=== PATIENT | male | born 1980 | race Caucasian/White ===

== ENCOUNTER 2024-11-21 14:43 | Emergency (ER) | payer OTHER, SELFPAY ==
[2024-11-21 14:57] VITALS: BP 140/86; PULSE 60; TEMP 36.7; O2SAT 99
--- OUTSIDE RECORDS SUMMARY | 2024-11-21 15:10 | XMS_ITS | Encounter Summary ---
Author Organization [facility] Address [address] [place] [address] Care Team Providers Care Manager Managed Care Name Role Phone Diana Cedeno MALINDA Primary Care Provider [phone] Reason for Visit * Reason Onset Date Comments Appointment 03/16/2024 Encounter Details Date Type Department Care Team (Late st Contact Info) Description 03/16/2024 Telephone Central Scheduling [address] [place] [address] Tavia Young Appointment Social History Tobacco Use Types Packs/Day Years Used Date Smoking Tobacco: Some Days Cigarettes 0.3 25 Started: 04/13/1996; Last attempted to quit: 04/13/2021 Smokeless Tobacco: Never Alcohol Use Standard Drinks/Week Comments Not Currently 0 (1 standard drink = 0.6 oz pur e alcohol) Sex and Gender Information Value Date Recorded Sex Assigned at Not on file Legal Sex Male 2:49 PM EDT Gender Identity Male Sexual Orientation Straight 02/26/2024 1: 24 PM EST documented as of this encounter Functional Status * Are you deaf or do you have serious difficulty hearing? Answer Date of Assessment Author No 08/13/2017 12:47 PM EDT Love Jett * Are you blind or do you have serious difficulty seeing, even when wearing glasses? Answer Date of Assessment Author No 08/13/2017 12:47 PM EDT Love Jett * Do you have serious difficulty walking or climbing stairs (5 years or older)? Answer Date of Assessment Author Yes 08/13/2017 12:47 PM EDT Love Jett * Do you have difficulty dressing or bathing (5 yrs or older)? Answer Date of Assessment Author No 08/13/2017 12:47 PM Love Moreau * Because of a physical, mental, or emotional condition, do you have difficulty doing errands alone such as visiting a doctor's office or shopping (5 yrs or older)? Answer Date of Assessment Author No 08/13/2017 12:47 PM Love Moreau documented as of this encounter Mental Status * Because of a physical, mental, or emotional condition, do you have serious difficulty concentrating, remembering, or making decisions (5 yrs or older)? Answer Entry Date Author No 08/13/2017 12:47 PM Love Moreau documented in this encounter Miscellaneous Notes * Telephone Encounter - Tavia Young - 03/16/2024 11:31 AM EST Pt calling in stating he received the letter to schedule his pump trial. Pls contact. Thank you documented in this encounter Plan of Treatment Not on file documented as of this encounter Visit Diagnoses Not on filedocumented in this encounter Care Teams Manager Managed Care Relationship Specialty Start Date End Date Diana Cedeno CNP [address] [place] [address] PCP - General Certified Nurse Practitioner 08/13/17 documented as of this encounter
--- OUTSIDE RECORDS SUMMARY | 2024-11-21 15:10 | XMS_ITS | Encounter Summary ---
Author Organization [facility] Address [address] [place] [address] Care Team Providers Care Lab Support Tech Name Role Phone Diana Cedeno MALINDA Primary Care Provider [phone] Reason for Visit * Reason Onset Date Comments Procedure 05/03/2024 Encounter Details Date Type Department Care Team (Late st Contact Info) Description 05/03/2024 Telephone Central Scheduling [address] [place] [address] Selin Dillard Procedure Social History Tobacco Use Types Packs/Day Years [...] of Assessment Author No 08/13/2017 12:47 PM EDLove Ruiz * Because of a physical, mental, or [...] encounter Miscellaneous Notes * Telephone Encounter - Selin Gilma - 05/03/2024 8:57 AM EST Patient states that he received a phone call advising that his Morphine Trial has been denied by his insurance. He is requesting to be advised on the next steps of treatment. Patient is requesting medication for pain be called in until he is able to have the morphine pump trial. Patient states procedure was scheduled for 05/05/2024 and message should be sent as urgent. documented in this encounter Plan of Treatment Not on file documented as of this encounter Visit Diagnoses Not on filedocumented in this encounter Care Teams Lab Support Tech Relationship Specialty Start Date End Date Diana Cedeno CNP [address] [place] [address] PCP - General Certified Nurse Practitioner 08/13/17 documented as of this encounter
--- OUTSIDE RECORDS SUMMARY | 2024-11-21 15:10 | XMS_ITS | Encounter Summary ---
Author Organization [facility] Address [address], [address] [place] [address] Care Team Providers Care Spool Tender Name Role Phone Diana Cedeno APRN MALINDA Primary Care Provider Reason for Referral * Imaging (Routine) - Closed Specialty Diagnoses / Procedures Referred By Contac t Referred To Contact Radiology Diagnoses Other intervertebral disc displacement, lumbar region Procedures MRI CERVICAL SPINE WO CONTRAST Diana Cedeno APRN - CNP [address] [place] [address] Phone: tel: fax: Referral ID Status Reason Start Date Expiration Date Visits Re quested Visits Authorized [id number] Closed 06/19/2022 06/19/2023 1 1 * Imaging (Routine) - Closed Specialty Diagnoses / Procedures Referred By Contac t Referred To Contact Radiology Diagnoses Other intervertebral disc displacement, lumbar region Procedures MRI LUMBAR SPINE WO CONTRAST Diana Cedeno APRN - CNP [address] [place] [address] Phone: tel: fax: Referral ID Status Reason Start Date Expiration Date Visits Re quested Visits Authorized [id number] Closed 06/19/2022 06/19/2023 1 1 Encounter Details Date Type Department Care Team (Latest Contact Info) Description 06/19/2022 Transcribe Orders [facility] [address] [place] [address] Diana Cedeno, CUSTOMER ACQUISITION MANAGER - PLASTIC PROCESS TECHNICIAN [address] [place] [id number] Other intervertebral disc displacement, lumbar region (Primary Dx) Social History Tobacco Use Types Packs/Day Years Used Date Smoking Tobacco: Every Day Cigarettes 0.5 17 Smokeless Tobacco: Never Alcohol Use Standard Drinks/Week Comments No 0 (1 standard drink = 0.6 oz pur e alcohol) Sex and Gender Information Value Date Recorded Sex Assigned at Not on file Legal Sex Male 4:20 PM EST Gender Identity Not on file Sexual Orientation Not on file documented as of this encounter Plan of Treatment Upcoming Encounters Date Type Department Care Team (Late st Contact Info) Description 01/03/2025 8:00 AM EDT Office Visit [facility] CARD[facility]OLOGY Part of [address] [address] Cecilia Cardenas, CUSTOMER ACQUISITION MANAGER - PLASTIC PROCESS TECHNICIAN [address] [place] [phone] follow up documented as of this encounter Goals Goal Patient Goal Type Associated Problems Recent Progress Patient-Stated? Author Quit smoking. Lifestyle Not on track(03/04/20 13 8:17 AM EST) No Martien, Meagan Quit smoking. Lifestyle Not on track(06/28/19 14 2:23 PM EDT) No Martien, Meagan Quit smoking Lifestyle Not on track(08/17/19 14 8:30 AM EDT) No Martien, Meagan Quit smoking. Lifestyle Not on track(12/29/19 14 10:10 AM EDT) No Martien, Meagan Quit smoking. Lifestyle Not on track(04/19/19 15 8:54 AM EST) No Martien, Meagan Quit smoking Lifestyle No Martien, Meagan documented as of this encounter Results * MRI LUMBAR SPINE WO CONTRAST (07/07/2022 2:45 PM EDT) Anatomical Region Laterality Modality T-spine, L-spine, Pelvis Magneti c Resonance 07/07/2022 2:46 PM EDT Impressions 07/07/2022 3:19 PM EDT Multilevel degenerative change most pronounced in the lower lumbar spine with mild to moderate right foraminal narrowing at L4-5 as well as mild right and severe left foraminal narrowing at L5-S1. Narrative 07/07/2022 3:19 PM EDT EXAMINATION: MRI OF THE LUMBAR SPINE WITHOUT CONTRAST, 07/07/2022 1:57 pm TECHNIQUE: Multiplanar multisequence MRI of the lumbar spine was performed without the administration of intravenous contrast. COMPARISON: None. HISTORY: ORDERING SYSTEM PROVIDED HISTORY: Other intervertebral disc displacement, lumbar region FINDINGS: BONES/ALIGNMENT: The vertebral body heights are maintained. There is age-appropriate bone marrow signal. There is degenerative disc disease with loss of disc signal and disc space narrowing at L4-5 and L5-S1. There is no spondylolisthesis. SPINAL CORD: The conus terminates normally. SOFT TISSUES: No paraspinal mass identified. L1-L2: There is a circumferential disc bulge. There is no canal stenosis or foraminal narrowing. L2-L3: There is a circumferential disc bulge. There is no canal stenosis or foraminal narrowing. L3-L4: There is a circumferential disc bulge. There is no canal stenosis or foraminal narrowing. L4-L5: There is a circumferential disc bulge. There is no canal stenosis or left foraminal narrowing. There is mild to moderate right foraminal narrowing. L5-S1: There is a circumferential disc bulge. There is no canal stenosis. There is mild right and severe left foraminal narrowing. Procedure Note Jose M Randolph MD - 07/07/2022 EXAMINATION: MRI OF THE LUMBAR SPINE WITHOUT CONTRAST, 07/07/2022 1:57 pm TECHNIQUE: Multiplanar multisequence MRI of the lumbar spine was performed withoutthe administration of intravenous contrast. COMPARISON: None. HISTORY: ORDERING SYSTEM PROVIDED HISTORY: Other intervertebral discdisplacement, lumbar region FINDINGS: BONES/ALIGNMENT: The vertebral body heights are maintained. There is age-appropriate bone marrow signal. There is degenerative disc diseasewith loss of disc signal and disc space narrowing at L4-5 and L5-S1. There isno spondylolisthesis. SPINAL CORD: The conus terminates normally. SOFT TISSUES: No paraspinal mass identified. L1-L2: There is a circumferential disc bulge. There is no canal stenosisor foraminal narrowing. L2-L3: There is a circumferential disc bulge. There is no canal stenosisor foraminal narrowing. L3-L4: There is a circumferential disc bulge. There is no canal stenosisor foraminal narrowing. L4-L5: There is a circumferential disc bulge. There is no canal stenosisor left foraminal narrowing. There is mild to moderate right foraminal narrowing. L5-S1: There is a circumferential disc bulge. There is no canalstenosis. There is mild right and severe left foraminal narrowing. IMPRESSION: Multilevel degenerative change most pronounced in the lower lumbar spinewith mild to moderate right foraminal narrowing at L4-5 as well as mild rightand severe left foraminal narrowing at L5-S1. us Diana Cedeno CUSTOMER ACQUISITION MANAGER - PLASTIC PROCESS TECHNICIAN IMG MRI ORDERABLES Fin al Result * MRI CERVICAL SPINE WO CONTRAST (07/07/2022 2:19 PM EDT) Anatomical Region Laterality Modality C-spine, T-spine, Neck Magnetic Resonance 07/07/2022 2:47 PM EDT Impressions 07/07/2022 3:22 PM EDT Multilevel degenerative change with canal stenosis most pronounced at C5-6 and C6-7. Bilateral foraminal narrowing as described above. Narrative 07/07/2022 3:22 PM EDT EXAMINATION: MRI OF THE CERVICAL SPINE WITHOUT CONTRAST 07/07/2022 1:57 pm TECHNIQUE: Multiplanar multisequence MRI of the cervical spine was performed without the administration of intravenous contrast. COMPARISON: None. HISTORY: ORDERING SYSTEM PROVIDED HISTORY: Other intervertebral disc displacement, lumbar region FINDINGS: BONES/ALIGNMENT: Vertebral body heights are maintained. There is age-appropriate bone marrow signal. There is multilevel degenerative disc disease with loss of disc signal. There is diffuse disc space narrowing. There is no spondylolisthesis. SPINAL CORD: No abnormal cord signal is seen. SOFT TISSUES: No paraspinal mass identified. C2-C3: There is no significant disc protrusion, spinal canal stenosis or neural foraminal narrowing. C3-C4: There is a disc osteophyte complex with uncovertebral hypertrophy. There is canal stenosis measuring 9 mm in AP dimension. There is mild left and moderate right foraminal narrowing. C4-C5: There is a disc osteophyte complex with uncovertebral and facet hypertrophy. There is canal stenosis measuring 8 mm in AP dimension. There is moderate left and severe right foraminal narrowing. C5-C6: There is a disc osteophyte complex with uncovertebral and facet hypertrophy. There is canal stenosis measuring 7 mm in AP dimension. There is severe bilateral foraminal narrowing. C6-C7: There is a disc osteophyte complex with uncovertebral and facet hypertrophy. There is canal stenosis measuring 7 mm in AP dimension. There is moderate bilateral foraminal narrowing. C7-T1: There is no significant disc protrusion, spinal canal stenosis or neural foraminal narrowing. Procedure Note Jose M Randolph MD - 07/07/2022 EXAMINATION: MRI OF THE CERVICAL SPINE WITHOUT CONTRAST 07/07/2022 1:57 pm TECHNIQUE: Multiplanar multisequence MRI of the cervical spine was performed withoutthe administration of intravenous contrast. COMPARISON: None. HISTORY: ORDERING SYSTEM PROVIDED HISTORY: Other intervertebral discdisplacement, lumbar region FINDINGS: BONES/ALIGNMENT: Vertebral body heights are maintained. There is age-appropriate bone marrow signal. There is multilevel degenerativedisc disease with loss of disc signal. There is diffuse disc spacenarrowing. There is no spondylolisthesis. SPINAL CORD: No abnormal cord signal is seen. SOFT TISSUES: No paraspinal mass identified. C2-C3: There is no significant disc protrusion, spinal canal stenosis or neural foraminal narrowing. C3-C4: There is a disc osteophyte complex with uncovertebralhypertrophy. There is canal stenosis measuring 9 mm in AP dimension. There is mildleft and moderate right foraminal narrowing. C4-C5: There is a disc osteophyte complex with uncovertebral and facet hypertrophy. There is canal stenosis measuring 8 mm in AP dimension.There is moderate left and severe right foraminal narrowing. C5-C6: There is a disc osteophyte complex with uncovertebral and facet hypertrophy. There is canal stenosis measuring 7 mm in AP dimension.There is severe bilateral foraminal narrowing. C6-C7: There is a disc osteophyte complex with uncovertebral and facet hypertrophy. There is canal stenosis measuring 7 mm in AP dimension.There is moderate bilateral foraminal narrowing. C7-T1: There is no significant disc protrusion, spinal canal stenosis or neural foraminal narrowing. IMPRESSION: Multilevel degenerative change with canal stenosis most pronounced atC5-6 and C6-7. Bilateral foraminal narrowing as described above. Diana Cedeno APRN - MALINDA IMG MRI ORDERABLES Fin al Result documented in this encounter Visit Diagnoses Diagnosis Other intervertebral disc displacement, lumbar region- Primary Other intervertebral disc displacement, lumbar region Other intervertebral disc displacement, lumbar region documented in this encounter Care Teams Spool Tender Relationship Specialty Start Date End Date Diana Cedeno, EMELIA - MALINDA [address] [place] [address] PCP - General 04/28/16 documented as of this encounter
--- OUTSIDE RECORDS SUMMARY | 2024-11-21 15:10 | XMS_ITS | Encounter Summary ---
Author Organization [facility] Address [address], [address] [place] [address] Care Team Providers Care Water Softener Installer Name Role Phone Diana Cedeno NURSE SPECIAL [facility] Primary Care Provider Reason for Visit * Reason Comments Medication Refill Encounter Details Date Type Department Care Team (Late st Contact Info) Description 11/28/2020 Refill [facility] UROLOGY [address] [place] [address] Delphine iSn, NURSE SPECIAL - [employer]SEMBLER [address] [place] [address] [address] [place] [phone] Medication Refill Social History Tobacco Use Types Packs/Day Years [...] Description 01/03/2025 8:00 AM EDT Office Visit [facility] CARDIOLOGY [address] [phone] Cecilia Cardenas, NURSE SPECIAL - [address] [address] follow up documented as of this encounter [...] Martien, Meagan documented as of this encounter Visit Diagnoses Not on filedocumented in this encounter Additional Health Concerns Infection Onset Date Last Indicated Resolved Time COVID-19 (Rule Out) 04/27/2021 04/27/2021 04/27/19 22 5:44 PM EST documented as of this encounter Care Teams Water Softener Installer Relationship Specialty Start Date End Date Diana Cedeno, NURSE SPECIAL - [employer]SEMBLER [address] [place] [address] PCP - General 04/28/16 documented as of this encounter
--- OUTSIDE RECORDS SUMMARY | 2024-11-21 15:10 | XMS_ITS | Encounter Summary ---
Author Organization [facility] enter Address [address] [place] [address] Care Team Providers Care Teletype Technician Name Role Phone Diana Cedeno MALINDA Primary Care Provider [phone] Encounter Details Date Type Department Care Team (Late st Contact Info) Description 03/27/2023 Telephone Central Scheduling [address] [place] [phone] Selin Dillard Social History Tobacco Use Types Packs/Day Years Used Date Smoking Tobacco: Former Cigarettes 0.3 25 0 04/13/1996 - 04/13/2021 Smokeless Tobacco: Never Alcohol Use Standard [...] 08/13/2017 12:47 PM EDT Love Jett * Because of a physical, mental, or emotional condition, do you have difficulty doing errands alone such as visiting a doctor's office or shopping (5 yrs or older)? Answer Date of Assessment Author No 08/13/2017 12:47 PM EDT Love Jett documented as of this encounter Mental Status * Because of a physical, mental, or emotional condition, do you have serious difficulty concentrating, remembering, or making decisions (5 yrs or older)? Answer Entry Date Author No 08/13/2017 12:47 PM EDT Love Jett documented in this encounter Plan of Treatment Not on file documented as of this encounter Visit Diagnoses Not on filedocumented in this encounter Care Teams Teletype Technician Relationship Specialty Start Date End Date Diana Cedeno CNP [address] [place] [address] PCP - General Certified Nurse Practitioner 08/13/17 documented as of this encounter
--- OUTSIDE RECORDS SUMMARY | 2024-11-21 15:10 | XMS_ITS | Encounter Summary ---
Author Organization [facility] enter Address [address] [place] [address] Care Team Providers Care Neurological Physiotherapist Name Role Phone Diana Cedeno CNP Primary Care Provider [phone] Reason for Visit * Reason Onset Date Comments Condition Update 09/28/2024 Encounter Details Date Type Department Care Team (Late st Contact Info) Description 09/28/2024 Telephone Central Scheduling [address] [place] [address] Juan Pablo Conley MD [address] [place] [address] Condition Update Social History Tobacco Use Types Packs/Day Years [...] EDT Love Jett documented in this encounter Miscellaneous Notes * Telephone Encounter - Tavia Young - 09/28/2024 2:05 PM EDT Pt calling in stating that he ws just advised during an appt yesterday with his provider in [place] that he was diagnosed in 2017 with rheumatoid arthritis which patient was unaware of. Pt just wantedto let Dr Conley know in case that matters for anything. Thank you documented in this encounter Plan of Treatment Not on file documented as of this encounter Visit Diagnoses Not on filedocumented in this encounter Care Teams Neurological Physiotherapist Relationship Specialty Start Date End Date Diana Cedeno CNP [address] [place] [address] PCP - General Certified Nurse Practitioner 08/13/17 documented as of this encounter
--- OUTSIDE RECORDS SUMMARY | 2024-11-21 15:10 | XMS_ITS | Clinical Summary ---
Author Organization [facility] Address [address], [address] [place] [address] Care Team Providers Care Vice President Commercial [employer] Name Role Phone Pao, Diana Ann APRN - DIRECTOR OF CONSUMER AFFAIRS Primary Care Provider Allergies Active Allergy Reactions Criticality Noted Date Comments Penicillins Swelling 08/25/2011 Medications OXcarbazepine (TRILEPTAL) 300 MG tabletIndications: Bipolar disorder (HCC) Take 1 tablet [facility] Active lurasidone (LATUDA) 40 MG TABS tablet Take 0.5 tablets by mouth nightly Active gabapentin (NEURONTIN) 300 MG capsule Take 800 mg by mouth 4 times daily. Active methylphenidate (RITALIN) 10 MG tablet Take 2 tablets by mouth. 08/04/19 18 Active tiZANidine (ZANAFLEX) 4 MG tablet Take by mouth 4 times daily 08/04/19 18 Active hydrOXYzine (ATARAX) 10 MG tablet Take 5 tablets by mouth every 8 hours as needed for Itching Active aspirin 81 MG chewable tablet Take 1 tablet by mouth daily 30 tablet 3 04/30/19 22 Active atorvastatin (LIPITOR) 80 MG tablet Take 1 tablet by mouth nightly 30 tablet 3 04/29/19 22 Active lisinopril (PRINIVIL;ZESTRIL) 10 MG tablet Take 1 tablet by mouth daily 30 tablet 3 04/30/19 22 Active tamsulosin (FLOMAX) 0.4 MG capsule Take 1 capsule by mouth daily 7 capsule 08/07/19 22 Active Additional Information Patient not taking.Reported on 12/02/2022 ondansetron (ZOFRAN ODT) 4 MG disintegrating tablet Take 1 tablet by mouth every 8 hours as needed for Nausea or Vomiting 12 tablet 08/07/19 22 Active Additional Information Patient not taking.Reported on 12/02/2022 ibuprofen (ADVIL;MOTRIN) 800 MG tablet TAKE 1 TABLET BY MOUTH THREE TIMES DAILY NEEDED FOR PAIN USE sparingly AND take WITH FOOD 11/26/19 23 Active gemfibrozil (LOPID) 600 MG tablet Take 1 tablet by mouth 2 times daily 11/26/19 23 Active famotidine (PEPCID) 20 MG tablet Take 1 tablet by mouth 2 times daily 10/16/19 23 Active ezetimibe (ZETIA) 10 MG tablet Take 1 tablet by mouth daily 90 tablet 3 12/10/19 23 Active Blood Pressure Monitoring (BLOOD PRESSURE CUFF) MISC 1 Units by Does not apply route daily 1 each 05/21/19 24 Active clopidogrel (PLAVIX) 75 MG tablet Take 1 tablet by mouth daily 90 tablet 3 01/04/20 24 Active metoprolol tartrate (LOPRESSOR) 25 MG tablet TAKE 1 TABLET BY MOUTH TWICE DAILY 60 tablet 3 03/14/20 24 Active Active Problems Problem Noted Date Diagnosed Date Renal calculus 09/06/2021 STEMI (ST elevation myocardial infarction) 04/27 Renal colic on right side 04/09/2020 Ureteral calculus 10/31/2019 Acute unilateral obstructive uropathy 10/11/2019 Bronchitis 05/08/2018 Acute nonintractable headache 07/09/2017 Dyslipidemia 07/06/2013 History of MRSA infection 08/25/2011 Chronic low back pain 08/25/2011 Bipolar disorder 08/25/2011 Overview (08/25/2011): Has seen Dr Hernández in the past but can no longer afford. [facility] Family History Medical History Relation Name Comments Heart Attack Father High Blood Pressure Father Stroke Father Heart Disease Mother High Blood Pressure Paternal Grandmother Relation Name Status Comments Brother 1 Alive Brother 2 Alive Brother 3 Alive Father Mother Alive Paternal Grandmother Son 1 Alive Son 2 Alive Social History Tobacco Use Types Packs/Day Years Used Date Smoking Tobacco: Former Cigarettes 0.5 17 0 04/27/2004 - 04/27/2021 Smokeless Tobacco: Never Tobacco Cessation:Counseling Given: Not Answered Alcohol Use Standard Drinks/Week Comments No 0 (1 standard drink = 0.6 oz pur e alcohol) AUDIT-C Answer Date Recorded Q1: How often do you have a drink containing alc ohol? Never 11/30/2022 Average Number of Drinks Not on file 023 Frequency of Binge Drinking Not on file 11/12 Interpersonal Safety Domain Source: IP Abuse Scr eening Answer Date Recorded Read-Only, Retired: Physical Abuse Denies 03/11/2023 Read-Only, Retired: Verbal Abuse Denies 03/11/2023 Read-Only, Retired: Emotional abuse Denies 03/11/2023 Read-Only, Retired: Financial Abuse Denies 03/11/2023 Read-Only, Retired: Sexual abuse Denies 03/11/2023 Sex and Gender Information Value Date Recorded Sex Assigned at Not on file Legal Sex Male 4:20 PM EST Gender Identity Not on file Sexual Orientation Not on file Last Filed Vital Signs Vital Sign Reading Time Taken Comments Blood Pressure 180/100 12/08/2022 3:11 PM EDT Pulse 75 12/02/2022 2:21 PM EDT Temperature 36.1 C (96.9 F) 12/08/2022 3:11 PM EDT Respiratory Rate 18 12/08/2022 3:11 PM EDT Oxygen Saturation 95% 12/02/2022 2:21 PM EDT Inhaled Oxygen Concentration - - Weight 103.4 kg (228 lb) 03/11/2023 2:40 PM EST Height 180.3 cm (5' 11 ) 03/11/2023 2:40 PM EST Body Mass Index 31.8 03/11/2023 2:40 PM EST Plan of Treatment Upcoming Encounters Date Type Department Care Team (Late st Contact Info) Description 01/03/2025 8:00 AM EDT Office Visit [facility] Part of [address] [address] Cecilia Cardenas, CLIENT REPRESENTATIVE - DIRECTOR OF CONSUMER AFFAIRS [address] [place] [address] [place] [address] follow up Health Maintenance Due Date Last Done Comments Depression Monitoring 1990 HIV screen 1993 Hepatitis C screen 02/08/1996 DTaP/Tdap/Td vaccine (1 - Tdap) 1997 Hepatitis B vaccine (1 of 3 - 19+ 3-dose series) 1997 Colonoscopy 2023 Colorectal Cancer Screen 2023 FIT/FOBT: Average risk 2023 Fecal-DNA (Cologuard): Average risk 2023 Sigmoidoscopy/CT colonography 2023 Lipids 12/09/2023 12/08/2022, 04/13, 03/20/2021, Additional history exists COVID-19 Vaccine (2023- season) 2023 Flu vaccine (#1) 11/11/2024 03/17/2018, 06/2016, 02/20/2015 Diabetes screen Discontinued 10/19/2017 HPV vaccine Aged Out No longer eligi ble based on patient's age to complete this topic Hepatitis A vaccine Aged Out No longe r eligible based on patient's age to complete this topic Hib vaccine Aged Out No longer eligi ble based on patient's age to complete this topic Meningococcal (ACWY) vaccine Aged Out No longer eligible based on patient's age to complete this topic Meningococcal B vaccine Aged Out No l onger eligible based on patient's age to complete this topic Pneumococcal 0-49 years Vaccine Aged Out No longer eligible based on patient's age to complete this topic Polio vaccine Aged Out No longer elig ible based on patient's age to complete this topic Goals Goal Patient Goal Type Associated Problems Recent Progress Patient-Stated? Author Quit smoking. Lifestyle Not on track(03/04/20 13 8:17 AM EST) No Meagan Whiting Quit smoking. Lifestyle Not on track(06/28/19 14 2:23 PM EDT) No Meagan Whiting Quit smoking Lifestyle Not on track(08/17/19 14 8:30 AM EDT) No Meagan Whiting Quit smoking. Lifestyle Not on track(12/29/19 14 10:10 AM EDT) No Meagan Whiting Quit smoking. Lifestyle Not on track(04/19/19 15 8:54 AM EST) No Meagan Whiting Quit smoking Lifestyle No Meagan Whiting Medical Devices Implanted Type Area Stripper Opaquer Device Identifier Shelf Expiration Date Model / Serial / Lot Stent Uret Hydrpl Coat W/O [id number] Implanted:Qty : 1 on 11/08/2019 by Mauricio Obregon MD at [facility] Stent:Ur ological Right: Ureter [employer] INTERVENTIONAL CARDIO-PMM 06/21/2022 [id number] / / [id number] Description:Strings external , secured with mastisol and steri strips Procedures Procedure Name Priority Date/Time Associated Diagnosis Comments LIPID PANEL Routine 12/08/2022 2:[address] elevation myocardial infarction (STEMI), unspecified artery (HCC) ASHD (arteriosclerotic heart disease) S/P angioplasty with stent Primary hypertension Mixed hyperlipidemia HANDY (obstructive sleep apnea) HEMOGLOBIN A1C Routine 10/19/2017 9:53 AM EDT from Last 3 Months or Most Recently Relevant to Health Maintenance Results * (ABNORMAL) Lipid Panel (12/08/2022 2:29 PM EDT) Cholesterol 200(H) <200 mg/dL 12/08/2022 2:29 PM EDT [facility] Comment: Cholesterol Guidelines: <200 Desirable 200-240 Borderline >240 Undesirable HDL 34(L) >40 mg/dL 12/08/2022 2:29 PM EDT [facility] Comment: HDL Guidelines: <40 Undesirable 40-59 Borderline >59 Desirable LDL Cholesterol 112 0 - 130 mg/dL 12/08/2022 2:29 PM EDT [facility] Comment: LDL Guidelines: <100 Desirable 100-129 Near to/above Desirable 130-159 Borderline >159 Undesirable Direct (measured) LDL and calculated LDL are not interchangeable tests. Chol/HDL Ratio 5.9(H) <5 12/08/2022 2:29 PM EDT [facility] Comment: Triglycerides 269(H) <150 mg/dL 12/08/2022 2:29 PM EDT [facility] Comment: Triglyceride Guidelines: <150 Desirable 150-199 Borderline 200-499 High >499 Very high Based on AHA Guidelines for fasting triglyceride, January 2012. BLOOD SPECIMEN / Unknown 12/08/2022 2:29 PM EDT 12/08/2022 2:30 PM EDT us Gypsy Delgado PA-C CHEMISTRY ORDERABLES Final Result Performing Organization Address City/[facility]/ZIP Co de Phone Number [facility] [address] [place] [address], [facility] [phone] [employer] [address] [place] [address] * Hemoglobin A1C (10/19/2017 9:53 AM EDT) Hemoglobin A1C 5.6 4.8 - 5.9 % 10/19/2017 11:39 AM EDT [facility] Estimated Avg Glucose 114 mg/dL 10/19/2017 11:39 AM EDT [facility] Comment: The ADA and AACC recommend providing the estimated average glucose result to permit better patient understanding of their HBA1c result. 10/19/2017 9:53 AM EDT 10/19/2017 9:54 AM EDT Renan Meyer DO CHEMISTRY ORDERABLES Final Result Performing Organization Address City/[facility]/ZIP Co de Phone Number [facility] [address] [phone] from Last 3 Months or Most Recently Relevant to Health Maintenance Insurance [address] [id number] [facility] [address] [id number] [facility] Advance Directives * Full Code (Latest Code Status on File) Date Activated Date Inactivated Comments 04/27/2021 9:54 PM 04/29/2021 8:38 PM * Full Code Date Activated Date Inactivated Comments 04/27/2021 4:37 PM 04/27/2021 9:54 PM * Full Code Date Activated Date Inactivated Comments 11/08/2019 6:13 AM 11/08/2019 12:14 PM * Full Code Date Activated Date Inactivated Comments 06/20/2014 1:03 PM 06/20/2014 5:31 PM Care Teams Vice President [employer] Relationship Specialty Start Date End Date Diana Cedeno, CLIENT REPRESENTATIVE - DIRECTOR OF CONSUMER AFFAIRS [address] [place] [address] PCP - General 04/28/16
--- OUTSIDE RECORDS SUMMARY | 2024-11-21 15:10 | XMS_ITS | Clinical Summary ---
Author Organization [employer] Address [address] [place] [address] Care Team Providers Care Camera Assembler Name Role Phone Diana Cedeno CNP Primary Care Provider [phone] Allergies Active Allergy Reactions Criticality Noted Date Comments Dicloxacillin Swelling High 07/17/2015 Per patient, Feels like my throat is closing up and itchy. Penicillins Swelling High 08/25/2011 Per patient, Feels like my throat is closing up and itchy. Medications gabapentin 800 MG Tab Take 1 tablet by mouth 4 times daily. 1 07/13/2017 Active tiZANidine 4 MG Tab tablet Take 1 tablet by mouth 4 times daily. 1 08/03/2017 Active ibuprofen 800 MG Tab Take 1 tablet by mouth 3 times daily. 1 08/03/2017 Active OXcarbazepine 300 MG Tab Take 2 tablets by mouth 2 times daily. 0 07/24/2017 Active Aspirin Low Dose [address] tablet Take 1 tablet by mouth daily. 07/28/2022 Active atorvastatin 80 MG tablet Take 1 tablet by mouth at bedtime. 08/11/2022 Active Metoprolol 25 MG tab regular release Take 1 tablet by mouth 2 times daily. 08/01/2022 Active Latuda 40 MG tablet Take 20 mg by mouth 2 times daily. 08/14/2022 Active traZODone 100 MG tablet Take 1 tablet by mouth at bedtime. 08/14/2022 Active hydrOXYzine HCl 25 MG tablet Take 1 tablet by mouth as needed for Anxiety. 07/28/2022 Active methylphenidate 20 MG tablet Take 0.5 tablets by mouth 2 times daily. 07/22/2022 Active faMOTIdine 20 MG tablet Take 1 tablet by mouth 2 times daily. 10/15/2022 Active Gemfibrozil 600 MG tablet Take 1 tablet by mouth 2 times daily. 09/29/2022 Active Active Problems Problem Noted Date Diagnosed Date Renal calculus 09/06/2021 10/27/2022 STEMI (ST elevation myocardial infarction) 04/2710/27/2022 Renal colic on right side 04/09/20202022 Ureteral calculus 10/31/2019 10/27/2022 Acute unilateral obstructive uropathy 10/11/2019 10/27/2022 Bronchitis 05/08/2018 10/27/2022 Vitamin D deficiency 12/31/2017 Patient non adherence 12/31/2017 Noncompliance 12/31/2017 Obesity: body mass index of 30.0-34.9 12/31/2017 Fatigue 08/13/2017 Disorder of bone and cartilage 08/13/2017 Bipolar disorder 08/13/2017 Overview (12/31/2017): Overview: Has seen Dr Hernández in the past but can no longer afford. Encouraged to establish with [facility] termite treater current use of non -steroidal anti-inflammatories (NSAID) 08/13/2017 Dorsalgia 08/13/2017 Lumbar spinal stenosis 08/13/2017 Osteoarthritis of lumbar spine 08/13/2017 Lumbar degenerative disc disease 08/13/2017 Osteopenia of lumbar spine 08/13/2017 Dyslipidemia 08/13/2017 Hyperglycemia 08/13/2017 Cervicalgia 08/13/2017 Osteoarthritis of both feet 08/13/2017 Acute nonintractable headache 07/09/2017 Chronic low back pain 08/25/2011 History of MRSA infection 08/25/2011 Encounters Date Type Department Care Team Description 09/28/2024 Telephone Central Scheduling [address] [place] [address] Juan Pablo Conley MD Condition Update from Last 3 Months Family History Medical History Relation Name Comments Other - Specify Father Stroke Father Diabetes Mother Other - Specify Mother Relation Name Status Comments Father Mother Social History Tobacco Use Types Packs/Day Years Used Date Smoking Tobacco: Some Days Cigarettes 0.3 25 Started: 04/13/1996; Last attempted to quit: 04/13/2021 Smokeless Tobacco: Never Tobacco Cessation:Ready to Q uit: Not Asked; Counseling Given: Not Answered Alcohol Use Standard Drinks/Week Comments Not Currently 0 (1 standard drink = 0.6 oz pur e alcohol) Sex and Gender Information Value Date Recorded Sex Assigned at Not on file Legal Sex Male 2:49 PM EDT Gender Identity Male Sexual Orientation Straight 02/26/2024 1: 24 PM EST Last Filed Vital Signs Vital Sign Reading Time Taken Comments Blood Pressure 134/80 10/27/2022 11:16 AM EDT Pulse 58 03/03/2024 1:25 PM EST Temperature 36.4 C (97.6 F) 03/03/2024 1:25 PM EST Respiratory Rate 20 10/27/2022 11:16 AM EDT Oxygen Saturation 98% 03/03/2024 1:25 PM EST Inhaled Oxygen Concentration - - Weight 95.7 kg (211 lb) 03/03/2024 1:25 PM EST Height 179.1 cm (5' 10.5 ) 03/03/2024 1:25 PM ES T Body Mass Index 29.85 03/03/2024 1:25 PM EST Plan of Treatment Health Maintenance Due Date Last Done Comments HEPATITIS C VIRUS SCREENING 1978 TETANUS 1978 HIV SCREENING DISCUSSION 1993 HEP B VACCINE (1 of 3 - 19+ 3-dose series) 1997 PNEUMOCOCCAL VACCINE SERIES (1 of 2 - PCV) 1997 TDAP (ADULT) 1997 LIPID SCREENING 2018 COLORECTAL CANCER SCREENING DISCUSSION 2023 COVID-19 VACCINE ( season) 2023 INFLUENZA VACCINE (#1) [address] [place] [address] [address] PLAN Member Subscriber Plan / Payer (Ef fective 2017-Present) Name:SAY RUSSELL II Relation to Subscriber:Self Name:Say Russell II Payer ID:[id number] (NAIC) Group ID:Not on file Type:Not on file Address: [place] [id number] [facility] Care Teams Camera Assembler Relationship Specialty Start Date End Date Diana Cedeno CNP [address] [place] [address] PCP - General Certified Nurse Practitioner 08/13/17
--- OUTSIDE RECORDS SUMMARY | 2024-11-21 15:10 | XMS_ITS | Clinical Summary ---
Author Organization [facility] tem Address [id number] [address] [place] [address] Care Team Providers Care Groover Runner Name Role Phone Pao Dianavikas Ann APRN-FOOD TESTER Primary Care Provider + Allergies Active Allergy Reactions Criticality Noted Date Comments Dicloxacillin Sodium Swelling 07/17/2015 Penicillins 07/17/2015 Medications lisinopril (PRINIVIL,ZESTR IL) 20 mg tablet Take 20 mg by mouth daily Active lurasidone (LATUDA) 40 mg tablet Take by mouth daily Active OXcarbazepine (TRILEPTAL) 300 mg tablet Take 300 mg by mouth 3 times daily From [facility] Active gabapentin (NEURONTIN) 600 mg tablet Take 600 mg by mouth 3 (three) times a day. Active tiZANidine (ZANAFLEX) 4 mg tablet Take 4 mg by mouth every 8 (eight) hours as needed for muscle spasms. Active traMADol (ULTRAM) 50 mg tablet Take 50 mg by mouth every 8 (eight) hours as needed for moderate pain - pain scale 4-6. Active Encounters Date Type Department Care Team Description 09/20/2024 Travel 08/26/2024 12:00 PM EDT - 08/26/2024 11:59 PM EDT Hospital Encounter [facility] - Radiology [address] [place] [address] Right ureteral stone; Gross hematuria; Flank pain; Kidney stone Discharge Disposition: Home 08/26/2024 Travel from Last 3 Months Social History Tobacco Use Types Packs/Day Years Used Date Smoking Tobacco: Every Day Cigarettes Alcohol Use Standard Drinks/Week Comments No 0 (1 standard drink = 0.6 oz pur e alcohol) Childcare Answer Date Recorded Childcare Unknown 09/22/2018 Employment Answer Date Recorded Employment Unknown 09/22/2018 Purpose - Life Answer Date Recorded Purpose and direction in life Unknown Sex and Gender Information Value Date Recorded Sex Assigned at Not on file Legal Sex Male 11:56 AM EDT Gender Identity Not on file Sexual Orientation Not on file Last Filed Vital Signs Vital Sign Reading Time Taken Comments Blood Pressure 146/101 09/16/2015 4:53 PM EDT Pulse 92 09/16/2015 4:53 PM EDT Temperature 36.1 C (97 F) 09/16/2015 4:53 PM EDT Respiratory Rate 16 09/16/2015 4:53 PM EDT Oxygen Saturation 97% 09/16/2015 4:53 PM EDT Inhaled Oxygen Concentration - - Weight 108.9 kg (240 lb) 09/16/2015 4:53 PM EDT Height 180.3 cm (5' 11 ) 09/16/2015 4:53 PM EDT Body Mass Index 33.47 09/16/2015 4:53 PM EDT Plan of Treatment Health Maintenance Due Date Last Done Comments Depression Screening 1990 Tobacco Screening 1990 Adult BMI Screening 02/08/1996 DTaP,Tdap and Td Vaccines (1 - Tdap) 1997 Influenza Vaccine 12/12/2024 Medical Devices Not on file Procedures Procedure Name Priority Date/Time Associated Diagnosis Comments XR UROGRAPHY IVP W OR WO TOMOS Routine 08/26/2024 1:12 PM EDT Right ureteral stone Gross hematuria Flank pain Kidney stone from Last 3 Months Results * X-ray urography IVP with or without tomography (08/26/2024 1:12 PM EDT) Anatomical Region Laterality Modality Body, Abdomen N/A Computed Radiogr aphy 08/26/2024 3:07 PM EDT Narrative 08/26/2024 3:11 PM EDT History: Right ureteral stone; Gross hematuria; Flank pain; Kidney stone Exam/Technique: Examination was performed after administration of 100 mL Omnipaque 300. Multiple images were acquired including AP obliques as well as full or diffuse and post void view. Comparison: None. Findings: Technical Internship view demonstrates multiple densities likely phleboliths in the right hemipelvis small calculi could be overlooked. DJD lumbosacral spine. No obvious radiopaque calculi overlying the renal shadows. After injection of IV contrast, Excretion of contrast by the kidneys bilaterally with normal contour no collecting system dilatation and normal caliber ureter down to the urinary bladder. Both ureters opacify symmetrically without any obstruction. The densities in the right kidney pelvis appear to be located within the distal right ureter. Visualized urinary bladder is unremarkable. On the postemptying study, there is no evidence of obstruction to the upper tracts. IMPRESSION: Examination demonstrates normal upper tracts and the ureters demonstrate no dilatation except for possibly some calculi located in the right hemipelvis that may be within the distal ureter however these are not creating definitive evidence of proximal obstruction. Finalized by Jean Art MD on 08/26/2024 3:11 PM Procedure Note Jean Art MD - 08/26/2024 History: Right ureteral stone; Gross hematuria; Flank pain; Kidney stone Exam/Technique: Examination was performed after administration of 100 mLOmnipaque 300. Multiple images were acquired including AP obliques as wellas full or diffuse and post void view. Comparison: None. Findings: Technical Internship view demonstrates multiple densities likely phlebolithsin the right hemipelvis small calculi could be overlooked. DJD lumbosacral spine. No obvious radiopaque calculi overlying the renal shadows. After injection of IV contrast, Excretion of contrast by the kidneys bilaterally with normal contour nocollecting system dilatation and normal caliber ureter down to the urinarybladder. Both ureters opacify symmetrically without any obstruction. The densities in the right kidney pelvis appear to be located within thedistal right ureter. Visualized urinary bladder is unremarkable. On the postemptying study, there is no evidence of obstruction to theupper tracts. IMPRESSION: Examination demonstrates normal upper tracts and the uretersdemonstrate no dilatation except for possibly some calculi located in theright hemipelvis that may be within the distal ureter however these arenot creating definitive evidence of proximal obstruction. Finalized by Jean Art MD on 08/26/2024 3:11 PM Adrián Yoo MD IMG DIAGNOSTIC IMAGING ORDER SRAVANTHI Final Result from Last 3 Months Insurance [employer] [employer] Care Teams Groover Runner Relationship Specialty Start Date End Date Diana Cedeno, BRAKE COUPLER DINKEY-FOOD TESTER [address] [place] [address] PCP - General Nurse Practitioner 08/26/24
[2024-11-21 15:31] LABS: Glucose Urine UA NEGATIVE (NEGATIVE)
[2024-11-21 15:39] LABS: Cast Seen? NONE SEEN #/LPF (NONE SEEN); Crystals Seen? None Seen #/HPF (None Seen); Urine Culture Indicated YES-FRMC
== END 2024-11-21 16:54 | disposition left against medical advice (07) ==
LOC: ER 15:08
PROVIDERS: Emergency Provider Emergency Medicine; PCP Nurse Practitioner Family
DX: Z53.21 Procedure and treatment not carried out due to patient leaving prior to being seen by health care provider (principal)
CPT/HCPCS: 81001; 87086; 87491; 87591; 99284

== ENCOUNTER 2024-12-26 15:42 | Outpatient (OUT) | payer OTHER, SELFPAY | END 2024-12-26 15:43 | disposition home or self-care (01) | PROVIDERS: PCP Nurse Practitioner Family; Visit Provider Urology | DX: N41.9 Inflammatory disease of prostate, unspecified (principal) | CPT/HCPCS: 87086 ==

== ENCOUNTER 2025-03-11 18:19 | Emergency (ER) | payer OTHER, SELFPAY ==
[2025-03-11 18:25] VITALS: BP 139/95; PULSE 91; TEMP 37.2; O2SAT 100; BMI 26.5
--- NOTE | 2025-03-11 18:37 | PC.NURSE ---
Problems getting to his Urologist and comes to ER for assistance with known stones.
--- OUTSIDE RECORDS SUMMARY | 2025-03-11 19:22 | XMS_ITS | Clinical Summary ---
Author Organization [facility] Address [address] [place] [address] Care Team Providers Care Road Engineer Name Role Phone Diana Cedeno CNP Primary Care Provider [phone] Allergies Active AllergyReactionsCriticalityNoted DateCommentsDicloxacillinSwellingHigh 07/17/2015 Per patient, Feels like my throat is closing up and itchy. DytthvkchrgOtgoufkcOiot81/14/2012 Per patient, Feels like my throat is closing up and itchy. Medications MedicationSigDispense QuantityRefillsLast FilledStart DateEnd DateStatus gabapentin 800 MG Tab Take 1 tablet by mouth 4 times daily.Active tiZANidine 4 MG Tab tablet Take 1 tablet by mouth 4 times daily.Active ibuprofen 800 MG Tab Take 1 tablet by mouth 3 times daily.Active OXcarbazepine 300 MG Tab Take 2 tablets by mouth 2 times daily.Active Aspirin Low Dose [address] tablet Take 1 tablet by mouth daily.07/28/2022ctive atorvastatin 80 MG tablet Take 1 tablet by mouth at bedtime.08/11/2022ctive Metoprolol 25 MG tab regular release Take 1 tablet by mouth 2 times daily.08/01/2022ctive Latuda 40 MG tablet Take 20 mg by mouth 2 times daily.08/14/2022ctive traZODone 100 MG tablet Take 1 tablet by mouth at bedtime.08/14/2022ctive hydrOXYzine HCl 25 MG tablet Take 1 tablet by mouth as needed for Anxiety.07/28/2022ctive methylphenidate 20 MG tablet Take 0.5 tablets by mouth 2 times daily.07/22/2022ctive faMOTIdine 20 MG tablet Take 1 tablet by mouth 2 times daily.10/15/2022ctive Gemfibrozil 600 MG tablet Take 1 tablet by mouth 2 times daily.09/29/2022ctive Active Problems ProblemNoted DateDiagnosed DateRenal uaqkyiud26STEMI (ST elevation myocardial infarction)Renal colic on right side Ureteral gbcedrvj02cute unilateral obstructive spadgqra93ronchitisVitamin D uykkmkgdjh29/20/2018Patient non vjpznuqli18/20/4572Merkdpxjhbfss16/20/2018 Obesity: body mass index of 30.0-34.9012/31/20177545Hwdobuf36/03/2018Disorder of bone and sdxrgzzin60/03/2018Bipolar qggqgkob62/03/2018 Overview (12/31/2017): Overview: Has seen Dr Hernández in the past but can no longer afford. 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-steroidal anti-inflammatories (NSAID)08/13/2017 Xwykbfwxj77/03/2018Lumbar spinal zottlvxi80/03/2018Osteoarthritis of lumbar spine08/13/2017Lumbar degenerative disc qauduwt7608/13/2017Osteopenia of lumbar spine08/13/20173316Utatybnwlxom06/03/1541Xcbdsubhxwods36/03/2018Cervicalgia 08/13/2017Osteoarthritis of both feet08/13/2017Acute nonintractable headache 07/09/2017Chronic low back pain08/25/2011History of MRSA rfjsjabfw88/14/2012 Encounters DateTypeDepartmentCare NaapJpatnyvpnjt16/09/2025Telephone Central Scheduling [address] [place] [address] Columba Carias Advice Onlyfrom Last 3 Months Family History Medical HistoryRelationNameCommentsOther - SpecifyFatherStrokeFatherDiabetes MotherOther - SpecifyMotherRelationNameStatusCommentsFatherMother Social History Tobacco UseTypesPacks/DayYears UsedDateSmoking Tobacco: Some DaysCigarettes0.325 Started: 04/13/1996; Last attempted to quit: 04/13/2021mokeless Tobacco: Never Tobacco Cessation:Ready to Q uit: Not Asked; Counseling Given: Not Answered Alcohol UseStandard Drinks/WeekCommentsNot Currently0 (1 standard drink = 0.6 oz pure alcohol)Sex and Gender InformationValueDate RecordedSex Assigned at Not on fileLegal LdzFzmf9208/13/2016 2:49 PM EDTGender IdentityMaleSexual LfticgqylydLypldxcb04/15/2024 1:24 PM EST Last Filed Vital Signs Vital SignReadingTime TakenCommentsBlood Xwislktc934/80010/27/2022 11:16 AM EDT Ffcly059403/03/2024 1:25 PM KTWQjllebnqizg49.4 ??C (97.6 ??F)03/03/2024 1:25 PM ESTRespiratory Giyh823710/27/2022 11:16 AM EDTOxygen Axmisfzkqr67%03/03/2024 1:25 PM ESTInhaled Oxygen Concentration--Bwjxno00.7 kg (211 lb)03/03/2024 1:25 PM EST Fwfgkf112.1 cm (5' 10.5 )03/03/2024 1:25 PM ESTBody Mass Index29.8503/03/2024 1:25 PM EST Plan of Treatment Health MaintenanceDue DateLast DoneCommentsHEPATITIS C VIRUS ICITFGUYL1978 RCTAVOT05 1978HIV SCREENING ABRVMVKAMS97/28/1993HEP B VACCINE (1 of 3 - 19+ 3-dose series)1997PNEUMOCOCCAL VACCINE SERIES (1 of 2 - PCV)1997TDAP (ADULT)1997LIPID JMVLVTJDG96/28/2018COLORECTAL CANCER SCREENING DISCUSSION 3COVID-19 VACCINE ( - season)2024INFLUENZA VACCINE (#1) 2024 [place] [address] MemberSubscriberPlan / Payer (Effective 2017-Present)Name:SAY RUSSELL II Relation to Subscriber:SelfName:Say Russell II Payer ID:[id number] (NAIC) Group ID:Not on file Type:Not on file Address: [id number] [place] [address] MemberSubscriberPlan / Payer (Effective 2018-Present)Name:Say Russell II Relation to Subscriber:SelfName:Say Russell II Payer ID:[id number] (NAIC) Group ID:Not on file Type:Not on file Address: [place] [id number] Care Teams Team MemberRelationshipSpecialtyStart DateEnd Diana Cedeno CNP [address] [place] [address] PCP - GeneralCertified Nurse Practitioner08/13/17
--- OUTSIDE RECORDS SUMMARY | 2025-03-11 19:22 | XMS_ITS | Clinical Summary ---
Author Organization [employer] Address [id number] [place] [address] Care Team Providers Care Community Development Manager Name Role Phone PaoDiana yates Seth [facility] Primary Care Provider + Allergies Active AllergyReactionsCriticalityNoted DateCommentsDicloxacillin SodiumSwelling 07/17/20152573Dhwhmpnbonh77/05/2016 Medications MedicationSigDispense QuantityRefillsLast FilledStart DateEnd DateStatus lisinopril (PRINIVIL,ZESTRIL) 20 mg tablet Take 20 mg by mouth dailyActive lurasidone (LATUDA) 40 mg tablet Take by mouth dailyActive OXcarbazepine (TRILEPTAL) 300 mg tablet Take 300 mg by mouth 3 times daily [facility] (NEURONTIN) 600 mg tablet Take 1 tablet (600 mg total) by mouth in the morning and 1 tablet (600 mg total) at noon and 1 tablet (600 mg total) before bedtime.Active tiZANidine (ZANAFLEX) 4 mg tablet Take 4 mg by mouth every 8 (eight) hours as needed for muscle spasms.Active traMADol (ULTRAM) 50 mg tablet Take 50 mg by mouth every 8 (eight) hours as needed for moderate pain - pain scale 4-6.Active aspirin 81 mg Take 1 tablet (81 mg total) by mouth.5Active atorvastatin (LIPITOR) 80 mg tablet 5Active clopidogreL (PLAVIX) 75 mg tablet Take 1 tablet (75 mg total) by mouth.4Active famotidine (PEPCID) 20 mg tablet 5Active hydrOXYzine (ATARAX) 10 mg tablet Take 5 tablets (50 mg total) by mouth.Active methylphenidate HCl (RITALIN) 20 mg tablet TAKE 1/2 (ONE-HALF) OF A TABLET BY MOUTH TWICE DAILY5Active metoprolol tartrate (LOPRESSOR) 25 mg tablet 5Active sertraline (ZOLOFT) 50 mg tablet 5Active traZODone (DESYREL) 100 mg tablet TAKE 1 & 1/2 (ONE AND ONE-HALF) TABLETS BY MOUTH AT SJZNZSG23/04/2025Active Social History Tobacco UseTypesPacks/DayYears UsedDateSmoking Tobacco: Every DayCigarettes Alcohol UseStandard Drinks/WeekCommentsNo0 (1 standard drink = 0.6 oz pure alcohol)ChildcareAnswerDate YkdqmmxkFeqywarykHejtklv17/12/2019EmploymentAnswer Date CuhkxyemVpagksrlatTbocbox70/12/2019Hunger ScreeningAnswerDate Recorded Within the past 12 months we worried whether our food would run out before we got money to buy more.Never True11/22/2024Within the past 12 months the food we bought just didn't last and we didn't have money to get more.Never True 11/22/2024Purpose - LifeAnswerDate RecordedPurpose and direction in lifeUnknown 05/24/2020ex and Gender InformationValueDate RecordedSex Assigned at BirthNot on fileLegal WuqTpcv2611/16/2014 11:56 AM EDTGender IdentityNot on fileSexual OrientationNot on file Last Filed Vital Signs Vital SignReadingTime TakenCommentsBlood Nytdljvm625/8211/22/2024 1:42 PM EDT Hlhoe118311/22/2024 1:42 PM SBJNgdisjhskhm52.7 ??C (98.1 ??F)11/22/2024 11:35 AM EDTRespiratory Lfso325911/22/2024 1:42 PM EDTOxygen Mhucrcmjnt53%11/22/2024 1:42 PM EDTInhaled Oxygen Concentration--Burspg98.2 kg (190 lb)11/22/2024 11:35 AM RUYWhbnpo171.8 cm (5' 10 )11/22/2024 11:35 AM EDTBody Mass Index27.26011/22/2024 11:35 AM EDT Plan of Treatment Health MaintenanceDue DateLast DoneCommentsTobacco Epuhypmlyl1978 Depression Oyfsgthgh63/28/1990Adult BMI Follow Up Plan02/08/1996DTaP,Tdap and Td Vaccines (1 - Tdap)1997Influenza Uepbfkk4012/12/2024dult BMI Screening Tobacco Hkthrlcqg15 Medical Devices Not on file Insurance Care Teams Team MemberRelationshipSpecialtyStart DateEnd Diana Cedeno, FABRIC AND ACCESSORIES ESTIMATOR-[employer] CERT[employer]IED NETWORK PROFESSIONAL [address] [place] [address] [place] [address] PCP - GeneralNurse Practitioner08/26/24
--- OUTSIDE RECORDS SUMMARY | 2025-03-11 19:22 | XMS_ITS | Clinical Summary ---
Author Organization [facility] Address [address], [address] [place] [address] Care Team Providers Care Coremaker Machine Name Role Phone PaoJamar yatesvikas Ann APRN [facility] Primary Care Provider Allergies Active AllergyReactionsCriticalityNoted DateCommentsPenicillinsSwelling 08/25/2011 Medications MedicationSigDispense QuantityRefillsLast FilledStart DateEnd DateStatus OXcarbazepine (TRILEPTAL) 300 MG tablet Indications:Bipolar disorder (HCC)Take 1 tablet by mouth 3 times daily [facility] (LATUDA) 40 MG TABS tablet Take 0.5 tablets by mouth nightlyActive gabapentin (NEURONTIN) 300 MG capsule Take 800 mg by mouth 4 times daily.Active methylphenidate (RITALIN) 10 MG tablet Take 2 tablets by mouth.08/03/2017Active tiZANidine (ZANAFLEX) 4 MG tablet Take by mouth 4 times daily08/03/2017Active hydrOXYzine (ATARAX) 10 MG tablet Take 5 tablets by mouth every 8 hours as needed for ItchingActive aspirin 81 MG chewable tablet Take 1 tablet by mouth daily 30 tablet ctive atorvastatin (LIPITOR) 80 MG tablet Take 1 tablet by mouth nightly 30 tablet ctive lisinopril (PRINIVIL;ZESTRIL) 10 MG tablet Take 1 tablet by mouth daily 30 tablet ctive tamsulosin (FLOMAX) 0.4 MG capsule Take 1 capsule by mouth daily 7 capsule 08/06/2021ctive Additional Information Patient not taking.Reported on 12/02/2022 ondansetron (ZOFRAN ODT) 4 MG disintegrating tablet Take 1 tablet by mouth every 8 hours as needed for Nausea or Vomiting 12 tablet 08/06/2021ctive Additional Information Patient not taking.Reported on 12/02/2022 ibuprofen (ADVIL;MOTRIN) 800 MG tablet TAKE 1 TABLET BY MOUTH THREE TIMES DAILY NEEDED FOR PAIN USE sparingly AND take WITH FOOD11/25/2022ctive gemfibrozil (LOPID) 600 MG tablet Take 1 tablet by mouth 2 times daily11/25/2022ctive famotidine (PEPCID) 20 MG tablet Take 1 tablet by mouth 2 times daily10/15/2022ctive ezetimibe (ZETIA) 10 MG tablet Take 1 tablet by mouth daily 90 tablet ctive Blood Pressure Monitoring (BLOOD PRESSURE CUFF) MISC 1 Units by Does not apply route daily 1 each 05/21/2023ctive clopidogrel (PLAVIX) 75 MG tablet Take 1 tablet by mouth daily 90 tablet ctive metoprolol tartrate (LOPRESSOR) 25 MG tablet TAKE 1 TABLET BY MOUTH TWICE DAILY 60 tablet ctive Active Problems ProblemNoted DateDiagnosed DateRenal cuinfdjq31/27/2022TEMI (ST elevation myocardial infarction)2Renal colic on right side04/09/2020Ureteral jkvotxwb69/20/2020Acute unilateral obstructive uclyhcsq85/30/2020Bronchitis 05/08/2018Acute nonintractable ukhztcnq32/29/6751Vtohcrrfjjto45/26/2014History of MRSA dokzjilcx78/14/2012Chronic low back pain08/25/2011ipolar disorder 08/25/2011 Overview (08/25/2011): Has seen Dr Hernández in the past but can no longer afford. Encouraged to establish with [employer] [facility] Family History Medical HistoryRelationNameCommentsHeart AttackFatherHigh Blood PressureFather StrokeFatherHeart DiseaseMotherHigh Blood PressurePaternal GrandmotherRelation NameStatusCommentsBrother 1AliveBrother 2AliveBrother 3AliveFatherDeceasedMother AlivePaternal GrandmotherSon 1AliveSon 2Alive Social History Tobacco UseTypesPacks/DayYears UsedDateSmoking Tobacco: FormerCigarettes0.517 04/27/2004 - 04/27/2021mokeless Tobacco: Never Tobacco Cessation:Counseling Given: Not Answered Alcohol UseStandard Drinks/WeekCommentsNo0 (1 standard drink = 0.6 oz pure alcohol)AUDIT-CAnswerDate RecordedQ1: How often do you have a drink containing alcohol?Never11/30/2022verage Number of DrinksNot on file11/30/2022Frequency of Binge DrinkingNot on file11/30/2022Interpersonal Safety Domain Source: IP Abuse ScreeningAnswerDate RecordedRead-Only, Retired: Physical AhmqwBfmbeb15/29/2023 Read-Only, Retired: Verbal QquewMxiisz44/29/2023Read-Only, Retired: Emotional oofizSghgwm44/29/2023Read-Only, Retired: Financial HnppoWkouzr36/29/2023Read- Only, Retired: Sexual nquysNetpnq52/29/2023Sex and Gender InformationValueDate RecordedSex Assigned at BirthNot on fileLegal NjmFomk1305/23/2012 4:20 PM EST Gender IdentityNot on fileSexual OrientationNot on file Last Filed Vital Signs Vital SignReadingTime TakenCommentsBlood Ulxwegev458/58894 3:11 PM EDT Octge917912/02/2022 2:21 PM QQQTgwrakjvcvh31.1 ??C (96.9 ??F)12/08/2022 3:11 PM EDTRespiratory Nfjm335712/08/2022 3:11 PM EDTOxygen Mvemiabfbj32%12/02/2022 2:21 PM EDTInhaled Oxygen Concentration--Zjlyzf367.4 kg (228 lb)03/11/2023 2:40 PM LOGPjfmre283.3 cm (5' 11 )03/11/2023 2:40 PM ESTBody Mass Index31.8105/11/2022 2:40 PM EST Plan of Treatment Health MaintenanceDue DateLast DoneCommentsDepression Rbfhfydxyp65/28/1990HIV mkjuio2202/07/1993Hepatitis C refcic5102/08/1996DTaP/Tdap/Td vaccine (1 - Tdap) 1997Hepatitis B vaccine (1 of 3 - 19+ 3-dose series)1997Colonoscopy 2023olorectal Cancer Slduow8002/07/2023FIT/FOBT: Average risk2023 Fecal-DNA (Cologuard): Average risk2023Sigmoidoscopy/CT colonography 02/07/20233105Atpbhq79/28/202408/, 04/27/2021, 03/20/2021, Additional history existsFlu vaccine (#1), 04/15/2016, 02/20/2015COVID-19 Vaccine ( season)2024Diabetes zuvdmtLaflwqrmgdux33/09/2018 Hepatitis A vaccineAged OutNo longer eligible based on patient's age to complete this topicHib vaccineAged OutNo longer eligible based on patient's age to complete this topicMeningococcal (ACWY) vaccineAged OutNo longer eligible based on patient's age to complete this topicMeningococcal B vaccineAged OutNo longer eligible based on patient's age to complete this topicPneumococcal 0-49 years VaccineAged OutNo longer eligible based on patient's age to complete this topic Polio vaccineAged OutNo longer eligible based on patient's age to complete this topic Goals GoalPatient Goal TypeAssociated ProblemsRecent ProgressPatient-Stated?Author Quit smoking. LifestyleNot on track(03/04/2013 8:17 AM EST)Meagan Schneider Quit smoking. LifestyleNot on track(06/27/2013 2:23 PM EDT)Maegan Schneider Quit smoking LifestyleNot on track(08/16/2013 8:30 AM EDT)Meagan Schneider Quit smoking. LifestyleNot on track(12/28/2013 10:10 AM EDT)Meagan Schneider Quit smoking. LifestyleNot on track(04/19/2014 8:54 AM EST)Meagan Schneider Quit smoking Meagan Dodd Medical Devices ImplantedTypeAreaManufacturerDevice IdentifierShelf Expiration DateModel / Serial / LotStent Uret Hydrpl Coat W/O [id number] Implanted:Qty: 1 on 11/08/2019 [facility]:UrologicalRight: UreterBOSTON SCI: INTERVENTIONAL CARDIO-PMM 06/21/[id number] / / [id number]:Strings external, secured with mastisol and steri strips Procedures Procedure NamePriorityDate/TimeAssociated DiagnosisCommentsLIPID PANELRoutine 12/08/2022 2:[address] elevation myocardial infarction (STEMI), unspecified artery (HCC) ASHD (arteriosclerotic heart disease) S/P angioplasty with stent Primary hypertension Mixed hyperlipidemia HANDY (obstructive sleep apnea) HEMOGLOBIN G1RZbvbhor11/09/2018 9:53 AM EDT from Last 3 Months or Most Recently Relevant to Health Maintenance Results * (ABNORMAL) Lipid Panel (12/08/2022 2:29 PM EDT)ComponentValueRef RangeTest MethodAnalysis TimePerformed AtPathologist DrhtsuzbiAvegvrqgame324(H)<200 mg/dL12/08/2022 2:29 PM EDTMERCY LABORATORIESComment: Cholesterol Guidelines: <200 Desirable 200-240 ??Borderline >240 Undesirable HDL34(L)>40 mg/dL12/08/2022 2:29 PM EDTMERCY LABORATORIESComment: HDL Guidelines: <40 Undesirable 40-59 ?Borderline >59 Desirable LDL Atlvrnqsred9210 - 130 mg/dL12/08/2022 2:29 PM EDTMERCY LABORATORIESComment: LDL Guidelines: <100 Desirable 100-129 ?? Near to/above Desirable 130-159 ?? Borderline >159 Undesirable Direct (measured) LDL and calculated LDL are not interchangeable tests. Chol/HDL Ratio5.9(H)<508 2:29 PM EDTMERCY LABORATORIESComment: Nvcumwbfnyywz388(H)<150 mg/dL12/08/2022 2:29 PM EDTMERCY LABORATORIESComment: Triglyceride Guidelines: <150 Desirable 150-199 ??Borderline 200-499 ??High >499 Very high Based on AHA Guidelines for fasting triglyceride, January 2012. Specimen (Source)Anatomical Location / LateralityCollection Method / Volume Collection TimeReceived TimeBLOOD SPECIMEN / Ebpszqh2912/08/2022 2:29 PM EDT 12/08/2022 2:30 PM EDT Narrative Authorizing ProviderResult TypeResult StatusGypsy MCKEONCCHEMISTRY ORDERABLESFinal ResultPerforming OrganizationAddressCity/State/ZIP CodePhone Number [facility] [address] [place] [address], [facility] [phone] [employer] [address] [address], [facility] [phone] * Hemoglobin A1C (10/19/2017 9:53 AM EDT)ComponentValueRef RangeTest Method Analysis TimePerformed AtPathologist SignatureHemoglobin A1C5.64.8 - 5.9 % 10/19/2017 11:39 AM [facility] LABEstimated Avg Glucose 114mg/dL10/19/2017 11:39 AM [facility] LABComment: The ADA and AACC recommend providing the estimated average glucose result to permit better patient understanding of their HBA1c result. Specimen (Source)Anatomical Location / LateralityCollection Method / Volume Collection TimeReceived Time10/19/2017 9:53 AM EDT10/19/2017 9:54 AM EDT Narrative Authorizing ProviderResult TypeResult StatusDavid Reese [facility] Campusjovtia DOCHEMISTRY ORDERABLESFinal ResultPerforming OrganizationAddressCity/State/ZIP CodePhone Number [facility] [address] [place] [address], [facility] [phone] from Last 3 Months or Most Recently Relevant to Health Maintenance [place] [address] [place] [address] Advance Directives * Full Code (Latest Code Status on File) Date ActivatedDate InactivatedComments04/27/2021 9:54 PM04/29/2021 8:38 PM * Full Code Date ActivatedDate InactivatedComments04/27/2021 4:37 PM04/27/2021 9:54 PM * Full Code Date ActivatedDate InactivatedComments11/08/2019 6:13 AM11/08/2019 12:14 PM * Full Code Date ActivatedDate InactivatedComments06/20/2014 1:03 PM06/20/2014 5:31 PM Care Teams Team MemberRelationshipSpecialtyStart DateEnd Date Diana Cedeno APRN - MALINDA [address] [place] [address] PCP - General04/28/16
[2025-03-11 19:50] LABS: Hematocrit 42.8 % (42.0-54.0); Hemoglobin 14.6 g/dL (14.0-18.0); Immature Granulocytes Abs Auto 0.02 10^3/uL (0.00-0.03); Immature Granulocytes Pct Auto 0.2 % (0.0-0.5); Lymphocytes Absolute Auto 2.3 10^3/uL (1.2-3.8); Mean Corpuscular HGB Conc 34.1 g/dL (29.9-35.2); Mean Corpuscular Hemoglobin 30.7 pg (25.9-34.0); Mean Corpuscular Volume 90.1 fL (80.0-94.0); Platelet Count 338 10^3/uL (150-450); Red Blood Count 4.75 10^6/uL (4.70-6.10); White Blood Count 8.6 10^3/uL (4.0-11.0)
[2025-03-11 19:52] LABS: Glucose Urine UA COLOR INTERFERENCE mg/dL (NEGATIVE)
[2025-03-11 19:59] VITALS: BP 103/61; PULSE 66; TEMP 36.7; O2SAT 97
[2025-03-11 20:04] LABS: Anion Gap 12.8; Blood Urea Nitrogen 18.0 mg/dL (7.0-18.0); Calcium 9.0 mg/dL (8.5-10.1); Carbon Dioxide 24.3 mmol/L (21.0-32.0); Chloride 102 mmol/L (98-107); Estimated GFR (African America >60 (>=60 mL/min/1.73m^2); Estimated GFR (Non-African Ame >60 (>=60 mL/min/1.73m^2); Glucose 99 mg/dL (74-106); Potassium 4.1 mmol/L (3.5-5.1); Sodium 135 mmol/L (136-145)
[2025-03-11 20:11] LABS: Cast Seen? SEEN #/LPF (NONE SEEN); Crystals Seen? None Seen #/HPF (None Seen); Urine Culture Indicated YES-FRMC
[2025-03-11] MEDS: SULFAMETHOXAZOLE/TRIMETHOPRIM 800-160 MG TABLET 1 TAB PO (20:11)
--- NOTE | 2025-03-12 01:14 | ED.GENADUL1 ---
HPI HPI - General Adult General Chief complaint: Urogenital-Male Stated complaint: groin pain Time Seen by Provider: 03/11/25 19:08 Source: patient Mode of arrival: walk-in History of Present Illness HPI narrative: Patient is a 45-year-old male presenting to the emergency department for concerns of dysuria. Patient states he has a history of kidney stones, recently passed a few stones. Over the last few weeks he has been having dysuria and discomfort in the lower part of his abdomen. He denies any fevers or chills. No flank pain. No chest pain or shortness of breath. No constipation, vomiting, or diarrhea. Related Data Home Medications ?Medication ?Instructions ?Recorded ?Confirmed aspirin 81 mg tablet,delayed 81 mg PO DAILY 03/11/25 03/11/25 release atorvastatin 80 mg tablet 80 mg PO QPM 03/11/25 03/11/25 clopidogrel 75 mg tablet 75 mg PO DAILY 03/11/25 03/11/25 dutasteride 0.5 mg capsule 0.5 mg PO DAILY 03/11/25 03/11/25 famotidine 20 mg tablet 20 mg PO BID 03/11/25 03/11/25 gabapentin 600 mg tablet 600 mg PO .Q6Hrs 03/11/25 03/11/25 hydroxyzine HCl 25 mg tablet 25 mg PO TID 03/11/25 03/11/25 lurasidone 80 mg tablet 80 mg PO QPM 03/11/25 03/11/25 methylphenidate HCl 20 mg tablet 10 mg PO BID 03/11/25 03/11/25 metoprolol tartrate 25 mg tablet 25 mg PO BID 03/11/25 03/11/25 oxcarbazepine 300 mg tablet 300 mg PO BID 03/11/25 03/11/25 sertraline 50 mg tablet 50 mg PO QPM 03/11/25 03/11/25 tamsulosin 0.4 mg capsule 0.4 mg PO BID 03/11/25 03/11/25 Previous Rx's ?Medication ?Instructions ?Recorded sulfamethoxazole 800 1 tab PO BID 5 days #10 tabs 03/11/25 mg-trimethoprim 160 mg tablet (Bactrim DS) Allergies Allergy/AdvReac Type Severity Reaction Status Date / Time Penicillins Allergy Severe Difficulty Verified 11/21/24 15:01 Swallowing Review of Systems ROS Status of ROS 10 or more systems reviewed and unremarkable except as noted in history and below PFSH PFSH Social History Little interest or pleasure in doing things: not at all Feeling down, depressed, or hopeless: not at all Exam Narrative Exam Narrative: CONSTITUTIONAL: Well-appearing, answering questions and following commands appropriately SKIN: Was warm and dry. EYES: Sclerae white. EARS, NOSE, THROAT: Moist oral mucosa. RESPIRATORY: Clear to auscultation bilaterally, no wheezes, crackles, or stridor, no use of accessory muscles CARDIOVASCULAR: Normal rate and regular rhythm. There is no S3, S4, murmur, rub. GASTROINTESTINAL: Abdomen is soft, nontender, nondistended. MUSCULOSKELETAL: No peripheral edema. NEUROLOGIC: Patient is awake and alert. Facies were symmetrical. Constitutional Vital Signs, click to edit/add: Last Vital Signs Temp 98.1 F 03/11/25 19:59 Pulse 66 03/11/25 19:59 Resp 16 03/11/25 19:59 BP 103/61 03/11/25 19:59 Pulse Ox 97 03/11/25 19:59 O2 Del Method Room Air 03/11/25 19:59 Course Vital Signs Vital signs: Vital Signs Temperature 99.0 F 03/11/25 18:25 Pulse Rate 91 H 03/11/25 18:25 Respiratory Rate 18 03/11/25 18:25 Blood Pressure 139/95 H 03/11/25 18:25 Pulse Oximetry 100 03/11/25 18:25 Oxygen Delivery Method Room Air 03/11/25 18:25 Temperature 98.1 F 03/11/25 19:59 Pulse Rate 66 03/11/25 19:59 Respiratory Rate 16 03/11/25 19:59 Blood Pressure 103/61 03/11/25 19:59 Pulse Oximetry 97 03/11/25 19:59 Oxygen Delivery Method Room Air 03/11/25 19:59 Medical Decision Making MDM Narrative Medical decision making narrative: Patient is a 45-year male presenting to the emergency department with a few week history of dysuria. He does have a history of recurrent nephrolithiasis. His vital signs on arrival are within normal limits. He is afebrile and hemodynamically stable. Examination as noted above. My clinical impression is that the patient is having discomfort secondary to recently passed kidney stones. He also made likely have a UTI or cystitis. He has no flank pain, nausea, vomiting, or fevers to suggest pyelonephritis or proximal stone. Laboratory studies and UA were obtained. Laboratory studies were unremarkable. No significant electrolyte or metabolic derangement. No evidence of acute kidney injury. No anemia, leukocytosis, or thrombocytopenia. Patient is on Azo, making the urinalysis difficult to interpret. However, given his symptoms of dysuria, I did elect to appear to treat him for UTI. He was given a dose of Bactrim while here in the ED, and a prescription was sent to his pharmacy for Bactrim DS twice daily x 5 days. He was instructed to follow-up with his urologist for further care. Return precautions were given including any new or concerning symptoms. Patient understands and agrees to plan. FINAL IMPRESSION: #Acute dysuria, possible UTI DISPOSITION: Discharged home CONDITION: Good Lab Data Lab results reviewed: Yes I reviewed the patient's lab results Labs: Lab Results 03/11/25 03/11/25 Range/Units 19:23 19:37 WBC 8.6 (4.0-11.0) 10^3/uL RBC 4.75 (4.70-6.10) 10^6/uL Hgb 14.6 (14.0-18.0) g/dL Hct 42.8 (42.0-54.0) % MCV 90.1 (80.0-94.0) fL MCH 30.7 (25.9-34.0) pg MCHC 34.1 (29.9-35.2) g/dL RDW 13.2 (11.0-15.0) % Plt Count 338 (150-450) 10^3/uL MPV 9.2 L (9.5-13.5) fL Neut % (Auto) 52.9 (43.0-75.0) % Lymph % (Auto) 26.7 (20.5-60.0) % [place] % (Auto) 7.9 (1.7-12.0) % Eos % (Auto) 11.4 H (0.9-7.0) % Baso % (Auto) 0.9 (0.2-2.0) % Neut # (Auto) 4.5 (1.4-6.5) 10^3/uL Lymph # (Auto) 2.3 (1.2-3.8) 10^3/uL [place] # (Auto) 0.7 (0.3-0.8) 10^3/uL Eos # (Auto) 1.0 H (0.0-0.7) 10^3/uL Baso # (Auto) 0.1 (0.0-0.1) 10^3/uL Abs Immat Gran (auto) 0.02 (0.00-0.03) 10^3/uL Imm/Tot Granulo (auto) 0.2 (0.0-0.5) % Sodium 135 L (136-145) mmol/L Potassium 4.1 (3.5-5.1) mmol/L Chloride 102 (98-107) mmol/L Carbon Dioxide 24.3 (21.0-32.0) mmol/L Anion Gap 12.8 BUN 18.0 (7.0-18.0) mg/dL Creatinine 0.78 (0.70-1.30) mg/dL Est GFR ( Amer) >60 (>=60 mL/min/1.73m^2) Est GFR (Non-Af Amer) >60 (>=60 mL/min/1.73m^2) BUN/Creatinine Ratio 23.1 Glucose 99 (74-106) mg/dL Calcium 9.0 (8.5-10.1) mg/dL Urine Color Dk. orange (YELLOW) Urine Clarity Clear (CLEAR) Urine pH Color interference A (5.0-9.0) Ur Specific [place] 1.025 (1.005-1.025) Urine Protein Color interference A (NEG/TRACE) mg/dL Urine Glucose (UA) Color interference A (NEGATIVE) mg/dL Urine Ketones Color interference A (NEGATIVE) mg/dL Urine Occult Blood Color interference A (NEGATIVE) Urine Nitrite Color interference A (NEGATIVE) Urine Bilirubin Color interference A (NEGATIVE) Urine Urobilinogen Color interference A (0.2-1.0) EU/dL Ur Leukocyte Esterase Color interference A (NEGATIVE) Urine RBC 2-5 A (0-2) #/HPF Urine WBC 10-20 A (NONE SEEN) #/HPF Ur Squamous Epith Cells Few A (NONE/RARE) #/LPF Urine Crystals None seen (None Seen) #/HPF Urine Bacteria Trace A (NONE SEEN) #/HPF Urine Casts Seen A (NONE SEEN) #/LPF Hyaline Casts Rare Urine Mucus None seen (NONE SEEN) Ur Culture Indicated? Yes-[facility] [place] Discharge Plan Discharge Chief Complaint: Urogenital-Male Clinical Impression: Urinary tract infection Patient Disposition: Home, Self-Care Time of Disposition Decision: 20:11 Condition: Good Mode of Transportation: Private Vehicle Prescriptions / Home Meds: New sulfamethoxazole-trimethoprim [Bactrim DS] 800-160 mg tablet 1 tab PO BID 5 Days Qty: 10 0RF No Action aspirin 81 mg tablet,delayed release (DR/EC) 81 mg PO DAILY atorvastatin 80 mg tablet 80 mg PO QPM clopidogrel 75 mg tablet 75 mg PO DAILY dutasteride 0.5 mg capsule 0.5 mg PO DAILY famotidine 20 mg tablet 20 mg PO BID gabapentin 600 mg tablet 600 mg PO .Q6Hrs hydroxyzine HCl 25 mg tablet 25 mg PO TID lurasidone 80 mg tablet 80 mg PO QPM methylphenidate HCl 20 mg tablet 10 mg PO BID metoprolol tartrate 25 mg tablet 25 mg PO BID oxcarbazepine 300 mg tablet 300 mg PO BID sertraline 50 mg tablet 50 mg PO QPM tamsulosin 0.4 mg capsule 0.4 mg PO BID Print Language: Bengali Instructions: Urinary Tract Infection in Men (ED) Additional Instructions: Follow up with your family DR and Urologist Referrals: Diana Cedeno CNP [Primary Care Provider] - 1 week Discharge Date/Time: 03/11/25 20:17
== END 2025-03-11 20:17 | disposition home or self-care (01) ==
PROVIDERS: Emergency Provider Student in an Organized Health Care Education/Training Program; PCP Nurse Practitioner Family
DX: N39.0 Urinary tract infection, site not specified (principal); R30.0 Dysuria; R10.30 Lower abdominal pain, unspecified
CPT/HCPCS: 36415; 80048; 81001; 85025; 87086; 99283